=== PATIENT | female | born 1960 | race Caucasian/White ===

== ENCOUNTER 2025-04-24 13:05 | Emergency (ER) | payer OTHER, SELFPAY ==
[2025-04-24 13:10] VITALS: BP 128/74
--- NOTE | 2025-04-24 14:46 | ED.GENMED ---
History of Present Illness
General
Chief Complaint: Headache
Source: patient and family (She wasdaughter at bedside)
Exam Limitations: none
Time Seen by Provider: 04/24/25 14:45
Nursing documentation reviewed up to this point in time: agreed with except (She does not have ear pain, she has ringing in her ears)
History of Present Illness
History of Present Illness:
64 yo female with no significant pmhx presents for posterior headache and ringing in her ears with trouble hearing at times in the past week since attending a wedding 1 week ago that had loud music. No recent head injury. No history of headaches.
She states the headache is constant but waxes and wanes, it is now 5 or 6/10, it has kept her up the past few nights. She denies N/V. She denies balance problems. She feels mildly 'dizzy' in her head, no room spinning dizziness. She denies
change in vision. She has been taking Tylenol and ibuprofen and took Aleve last night all which helped her headache but 'only for a few hours.'
Past History
Past History
ED Past Medical History: None
ED Past Surgical History: None
Social History
Tobacco: Non-smoker
Alcohol: None
Personal: Single
Living: with family
Review of Systems
Review of Systems
Allergies reviewed?: Yes
All Other Systems: ROS reviewed and negative except as documented in HPI and ROS
Phy Exam
Physical Exam
Physical Exam:
GENERAL: No acute distress. A&Ox3.
CONSTITUTIONAL: Afebrile.
EYES: clear, conjunctivae normal
ENMT: moist mucus membranes, Pharynx nl, TMs normal ear canals clear, no cerumen.
RESPIRATORY: Regular respirations, nonlabored, lungs clear.
CARDIOVASCULAR: Regular rate and rhythm, no murmurs, no rubs.
GI: Soft, nontender, normal BS
MUSCULOSKELETAL: Moves with ease. Well perfused.
SKIN: Warm, dry, pink
PSYCH: Normal mood and affect. Well kept, interactive and appropriate
NEUROLOGIC: Awake, alert and oriented. Speech clear. Cranial nerves II through XII intact. [id number] intact. Walks heel-to-toe steadily. No focal neurological deficits
Course
Orders/Labs/Results
Orders:
Orders
04/24/25 15:02
CT Head W/o Iv Contrast Urgent
Comment:
Reason For Exam: posterior headache, ringing in ears.
Acetaminophen [Tylenol] 1,000 mg PO NOW STA
Vital Signs
Initial and Last Documented VS:
Initial Vital Signs
Temp Pulse Resp BP Pulse Ox
98.3 F 72 16 128/74 100
04/24/25 13:10 04/24/25 13:10 04/24/25 13:10 04/24/25 13:10 04/24/25 13:10
Last Documented Vital Signs
Temp Pulse Resp BP Pulse Ox
98.3 F 82 16 120/72 99
04/24/25 13:10 04/24/25 18:20 04/24/25 13:10 04/24/25 18:20 04/24/25 16:49
MDM/Problems Addressed
Differential Diagnosis Includes:
Tension headache, migraine
Tinnitus
MDM/Problems Addressed:
64 yo female with no significant pmhx presents for posterior headache and ringing in her ears with trouble hearing at times in the past week since attending a wedding 1 week ago that had loud music. No recent head injury. No history of headaches.
She states the headache is constant but waxes and wanes, it is now 5 or 6/10, it has kept her up the past few nights. She denies N/V. She denies balance problems. She feels mildly 'dizzy' in her head, no room spinning dizziness. She denies
change in vision. She has been taking Tylenol and ibuprofen and took Aleve last night all which helped her headache but 'only for a few hours.'
Afebrile, NAD, no neuro deficits.
4:45 PM:
Still awaiting head CT
States headache is 'a little better' after Tylenol
She is sitting up eating a meal
6:10 PM:
Head CT radiology report read: No acute intracranial abnormality. Patient reassured
Stable for discharge.
Referral to ENT given if tinnitus persist
*Pulse Oximetry
SaO2: 100
Oxygen Mode of Delivery: Room air
Patient hypoxic: no
*Critical Care Note
Total Time (30-74mins, 75-104mins- exclusive of procedures): Not Applicable
ED Attending Note
-
Portions of this chart may have been created with voice recognition software.� Occasional wrong word or��sound alike� substitutions may have occurred due to the inherent limitations of voice recognition software.
Discharge Plan
Departure
Patient Disposition: Home (Routine Discharge)
Date of Disposition: 04/24/25
Time of Disposition: 18:09
Patient with high blood pressure during this ER visit?: No
Condition: Good
Discharge Problem:
Headache, Tinnitus
Instructions: Tinnitus (ringing in the ears), Headache, Adult (DC)
Referrals:
sher, Ada [Other] - As needed
Carol Johnston MD [Active, Otology] - Next open appointment
Activity Restrictions/Additional Instructions:
As we discussed, nothing worrisome in your workup here today. Your CAT scan is normal
Continue ibuprofen, Tylenol and Aleve, whichever 1 works best for you since they have helped your headaches.
If the ringing in your ears persists call and make an appointment to see the ENT doctor
If your headache persists beyond 1 week, see your primary doctor for reevaluation.
Drink plenty of water/fluids in the next few days.
Interventions
Interventions:
*Risk Screen - Suicide Last Done: 04/24/25 13:10
*General Assessment Last Done: 04/24/25 15:09
*Neglect/Abuse Screening Last Done: 04/24/25 13:10
*ED- Fall Risk Assessment Last Done: 04/24/25 15:09
*ED COVID-19 Vaccine History Last Done: 04/24/25 15:09
*ED Influenza Vaccine History Last Done: 04/24/25 15:09
*Nursing Disposition Last Done: 04/24/25 18:20
ED- Neurological Assessment Last Done: 04/24/25 15:09
Discharge Date and Time
Discharge Date/Time: 04/24/25 18:23
Print Language: MALTESE
[2025-04-24] MEDS: TYLENOL 1000 MG PO (15:07)
[2025-04-24 15:08] VITALS: BMI 28.5
[2025-04-24 16:00] VITALS: BP 112/70
[2025-04-24 17:00] VITALS: BP 110/72
[2025-04-24 18:18] VITALS: BP 120/72
[2025-04-24 18:20] VITALS: BP 120/72
== END 2025-04-24 18:23 | disposition home or self-care (01) ==
LOC: EMR 13:05
PROVIDERS: EMERGENCY PHYSICIAN Emergency Medicine; FAMILY PHYSICIAN Family Medicine
DX: H93.13 Tinnitus, bilateral (principal); R51.9 Headache, unspecified
CPT/HCPCS: 99284; 70450